=== PATIENT | male | born 1975 | race Caucasian/White ===

== ENCOUNTER → 2016-11-13 | Outpatient (CLI) | payer OTHER ==
--- NOTE | 2016-11-13 11:22 | FL ---
EXAMINATION TYPE: FL UGI DATE OF EXAM ORDERED: 11/13/2016 9:22 AM HISTORY: Chest pain and heartburn. COMPARISON: None. FINDINGS: The patient drank barium of these. The esophagus distended normally with air and barium wi thout evidence of obstructing or constricting disease. The mucosal pattern throughout the esophagus w as normal. There is no significant hiatal hernia or reflux. Stomach contour is normal. There is no fixed filling defect or christin ulceration. The duodenal cap and sweep are normal. IMPRESSION: NORMAL AIR-CONTRAST UPPER GI SERIES.
== END | disposition home or self-care (01) ==
LOC: RADFLWHC 08:47
PROVIDERS: ATTEND Family Medicine
DX: R10.13 Epigastric pain (principal)
CPT/HCPCS: 74240

== ENCOUNTER 2024-02-18 11:45 | Day surgery (SDC) | payer BC ==
[2024-02-17 09:33] VITALS: BMI 31.1
[2024-02-18] MEDS: IV FLUID CONTINUATION 1,000 ML IV ONE (13:02)
[2024-02-18] MEDS: LACTATED RINGERS 1,000 ML IV SCH (13:22)
[2024-02-18 13:28] VITALS: RESP 16; TEMP 96.7
[2024-02-18] MEDS ORDERED: LIDOCAINE 1% INJ 10MG/ML (20 ML MDV) ONE (13:48)
[2024-02-18] MEDS ORDERED: PROPOFOL 10 MG/ML 20 ML VIAL IV ONE (13:48)
--- NOTE | 2024-02-18 14:13 | P.PCN ---
Date of Procedure: 02/18/24 Procedure(s) Performed: BRIEF HISTORY: Patient is a 48-year-old pleasant white male scheduled for an elective colonoscopy as a part of screening for colon cancer/positive Cologuard. PROCEDURE PERFORMED: Colonoscopy with snare polypectomy. PREOPERATIVE DIAGNOSIS: Screening for colon cancer/positive Cologuard. IV sedation per Anesthesia. PROCEDURE: After informed consent was obtained, the patient, was brought into the endoscopy unit. IV sedation was administered by Anesthesia under continuous monitoring. Digital rectal examination was normal. Initially the Olympus CF-160 flexible video colonoscope was then inserted in the rectum, gradually advanced into the cecum without any difficulty. Careful examination was performed as the scope was gradually being withdrawn. Ileocecal valve and the appendiceal orifice were visualized and appeared normal. Prep was excellent. Mucosa of the cecum, appeared normal. Descending colon there was a 6 mm flat polyp that was removed by cold snare polypectomy. Rest of the ascending colon, transverse colon, appeared normal. In the descending colon there was a 1.2 cm broad-based polyp removed by snare polypectomy. Scattered left-sided diverticulosis seen. Rest of the descending colon, sigmoid colon, and rectum appeared normal. Retroflexion was performed in the rectum and no lesions were seen. The patient tolerated the procedure well. IMPRESSION: 6 mm flat descending colon polyp status post cold snare polypectomy 1.2 cm descending colon polyp status post polypectomy Scattered sigmoid diverticulosis RECOMMENDATIONS: Findings of this examination were discussed with the patient as well as his family.. He was advised to follow-up with the biopsy results. If the biopsy reveals adenoma he can have repeat colonoscopy in 3 years
[2024-02-18] MEDS: SODIUM CHLORIDE 0.9% 500 ML 500 ML IV ONE (14:14)
[2024-02-18 14:35] VITALS: BP 103/64; PULSE 71
== END 2024-02-18 15:40 | disposition home or self-care (01) ==
LOC: ORWHC2ENDO 11:45
PROVIDERS: ATTEND Internal Medicine Gastroenterology
DX: K57.30 Diverticulosis of large intestine without perforation or abscess without bleeding (principal); K63.5 Polyp of colon
CPT/HCPCS: 45385; 88305